=== PATIENT | female | born 1940 | race African-American/Black ===

== ENCOUNTER 2022-11-16 20:20 | Inpatient (IN) | payer MEDICARE ==
[~2022-11-16] VITALS: Ht 165.1 cm; Wt 73.0 kg
[2022-11-16 23:04] LABS: BASOPHILS % 0.4 % (0.0-2.0); EOSINOPHILS % 1.3 % (0.0-5.0); HEMATOCRIT. 37.7 % (36.0-48.0); HEMOGLOBIN. 12.4 g/dL (12.0-16.0); LYMPHOCYTES % 34.8 % (20.0-50.0); MEAN CORPUSCULAR HEMOGLOBIN 27.2 pg (28.0-32.0); MEAN CORPUSCULAR VOLUME 82.7 fL (81.0-99.0); MEAN PLATELET VOLUME 11.4 fl (7.4-10.4); MONOCYTES % 7.2 % (2.0-8.0); NEUTROPHILS % 56.3 % (40.0-76.0); PLATELET 115 x1000/uL (130-400); RED BLOOD CELL COUNT 4.56 mill/uL (4.2-5.4); RED CELL DISTRIBUTION WIDTH 15.5 % (11.6-14.6)
[2022-11-16 23:09] LABS: CHLORIDE 104 mEq/L (98-107)
[2022-11-16 23:19] LABS: ETHANOL BLOOD < 10 mg/dL
[2022-11-16 23:27] LABS: CLARITY URINE CLEAR (CLEAR); COLOR URINE YELLOW (YELLOW); KETONES URINE NEGATIVE (NEGATIVE); LEUKOCYTE ESTERASE URINE NEGATIVE (NEGATIVE); NITRITE URINE POSITIVE (NEGATIVE); OCCULT BLOOD URINE 1+ (NEGATIVE); PROTEIN URINE NEGATIVE (NEGATIVE); SPECIFIC GRAVITY URINE 1.014 (1.005-1.030); UROBILINOGEN URINE 0.2 E.U./dL (0.2-1.0)
[2022-11-17] MEDS ORDERED: CEFTRIAXONE 1 G PREMIX 50 ML IV ONE
[2022-11-17] MEDS ORDERED: CEFTRIAXONE 1 G PREMIX 50 ML IV NR (04:30)
[2022-11-17] MEDS ORDERED: ACETAMINOPHEN 325MG TABLET PO PRN (17:00)
[2022-11-17] MEDS: ENOXAPARIN 40MG/0.4ML SYR SUBCUT SCH (17:00)
[2022-11-17] MEDS ORDERED: ONDANSETRON HCL 4MG/2ML INJ IV PRN (17:00)
[2022-11-17] MEDS ORDERED: CLONIDINE 0.1MG TABLET PO PRN (17:00)
[2022-11-17] MEDS ORDERED: CEFTRIAXONE 1 G PREMIX 50 ML IV SCH (17:00)
[2022-11-17] MEDS: SODIUM CHLORIDE 0.9% 1,000 ML IV SCH (17:24)
[2022-11-18 00:02] LABS: CREATINE KINASE MB FRACTION 4.3 ng/mL (0.5-3.6)
[2022-11-18 04:00] VITALS: BP 151/68
[2022-11-18 04:52] VITALS: BP 151/68
[2022-11-18] MEDS: SODIUM CHLORIDE 0.9% 1,000 ML IV SCH ×2 (06:13→19:40)
[2022-11-18 08:00] VITALS: BP 159/71
[2022-11-18] MEDS ORDERED: INFLUENZA VACCINE 05/PF 0.5 ML SYRINGE IM ONE (11:00)
[2022-11-18 12:00] VITALS: BP 141/73
[2022-11-18 12:06] LABS: BASOPHILS % 0.6 % (0.0-2.0); EOSINOPHILS % 1.8 % (0.0-5.0); HEMATOCRIT. 38.9 % (36.0-48.0); HEMOGLOBIN. 12.4 g/dL (12.0-16.0); LYMPHOCYTES % 34.8 % (20.0-50.0); MEAN CORPUSCULAR HEMOGLOBIN 26.6 pg (28.0-32.0); MEAN CORPUSCULAR VOLUME 83.5 fL (81.0-99.0); MONOCYTES % 7.8 % (2.0-8.0); RED BLOOD CELL COUNT 4.67 mill/uL (4.2-5.4); RED CELL DISTRIBUTION WIDTH 15.8 % (11.6-14.6)
[2022-11-18 12:21] LABS: CHLORIDE 109 mEq/L (98-107)
[2022-11-18 12:31] LABS: CREATINE KINASE 454 IU/L (26-192); CREATINE KINASE MB FRACTION 4.1 ng/mL (0.5-3.6)
[2022-11-18] MEDS: DONEPEZIL HCL 5MG TABLET PO SCH (14:00)
[2022-11-18] MEDS: CEFTRIAXONE 1,000 MG in DEXTROSE 5% WATER 50 ML IV SCH (15:06)
[2022-11-18 16:00] VITALS: BP 143/57
[2022-11-18] MEDS: ENOXAPARIN 40MG/0.4ML SYR SUBCUT SCH (19:01)
[2022-11-18 20:00] VITALS: BP 152/72
[2022-11-18] MEDS: MEMANTINE HCL 10MG TABLET PO SCH (20:48)
[2022-11-19 04:00] VITALS: BP 136/50
[2022-11-19 08:00] VITALS: BP 160/57
[2022-11-19] MEDS: DONEPEZIL HCL 5MG TABLET PO SCH (09:00)
[2022-11-19] MEDS: MEMANTINE HCL 10MG TABLET PO SCH ×2 (09:00→21:11)
[2022-11-19] MEDS: SODIUM CHLORIDE 0.9% 1,000 ML IV SCH ×2 (09:00→22:28)
[2022-11-19] MEDS: CEFTRIAXONE 1,000 MG in DEXTROSE 5% WATER 50 ML IV SCH (09:02)
[2022-11-19 12:00] VITALS: BP 124/55
[2022-11-19 16:00] VITALS: BP 149/67
[2022-11-19] MEDS: ENOXAPARIN 40MG/0.4ML SYR SUBCUT SCH (17:00)
[2022-11-19 20:00] VITALS: BP 135/51
[2022-11-20] VITALS: BP 130/54
[2022-11-20 04:00] VITALS: BP 138/62
[2022-11-20 08:00] VITALS: BP 155/83
[2022-11-20] MEDS: CEFTRIAXONE 1,000 MG in DEXTROSE 5% WATER 50 ML IV SCH (09:20)
[2022-11-20] MEDS: DONEPEZIL HCL 5MG TABLET PO SCH (09:20)
[2022-11-20] MEDS: MEMANTINE HCL 10MG TABLET PO SCH (09:20)
[2022-11-20] MEDS: SODIUM CHLORIDE 0.9% 1,000 ML IV SCH (09:21)
[2022-11-20] MEDS ORDERED: MEMA10TA2 PO (10:37)
[2022-11-20] MEDS ORDERED: NITR-87 MT (10:37)
[2022-11-20] MEDS ORDERED: AMLO2.5T2 MT (10:37)
[2022-11-20] MEDS ORDERED: DONE5TAB7 PO (10:37)
[2022-11-20 11:04] VITALS: BP 155/83
== END 2022-11-20 11:36 | disposition home health service (06) | DRG 689 ==
LOC: ER 20:20 → MICUSO 11-17 00:54 → EDBEDREQ 11-17 00:58 → EDBEDREQTM 11-17 00:58 → EDBEDREQSVC 11-17 00:58 → 6EST 11-18 04:25
PROVIDERS: ADMIT Internal Medicine; ATTEND Internal Medicine
DX: N39.0 Urinary tract infection, site not specified (principal); G93.41 Metabolic encephalopathy; I10 Essential (primary) hypertension; Z20.822 Contact with and (suspected) exposure to COVID-19; F03.90 Unspecified dementia, unspecified severity, without behavioral disturbance, psychotic disturbance, mood disturbance, and anxiety; Z86.73 Personal history of transient ischemic attack (TIA), and cerebral infarction without residual deficits
CPT/HCPCS: 36415; 71045; 80048; 80053; 80320; 81003; 82550; 82553; 83880; 84443; 84484; 85025; 87426; 90686; 93005; 99285; J0696; J1650; J7030; J7060; G0480